=== PATIENT | female | born 2000 | race Caucasian/White ===

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

== ENCOUNTER 2019-06-18 17:38 | Emergency (ER) | payer MEDICAID, OTHER ==
--- NOTE | 2019-06-18 18:39 | XRay Report ---
CHEST 2 VIEWS 1807 INDICATION / CLINICAL INFORMATION: SOB, asthma, chest pain for one week COMPARISON: None available. FINDINGS: SUPPORT DEVICES: None. HEART / MEDIASTINUM: No significant abnormality. LUNGS / PLEURA: No significant pulmonary or pleural abnormality. No pneumothorax. ADDITIONAL FINDINGS: No significant additional findings. IMPRESSION: No significant acute abnormality Signer Name: Shaq Euceda MD Signed: 06/18/2019 6:35 PM Workstation Name: [id number]
--- NOTE | 2019-06-18 19:19 | Emergency Department Report ---
- General Chief Complaint: Adult Asthma Stated Complaint: ASTHMA Time Seen by Provider: 06/18/19 18:05 Source: patient Mode of arrival: Ambulatory Limitations: No Limitations - History of Present Illness Initial Comments: Patient is a 19-year-old female presents emergency room with complaints of shortness of breath and chest tightness that began 5 days ago. She states that she had childhood asthma and believes that it is recurring again. She states that she has not had issues since childhood. She denies any nausea, vomiting, diarrhea, fever, sore throat, ear pain, rhinorrhea, any other symptoms. She denies any recent travel, sick contacts, recent surgery, hormone use. She denies any other past medical history. She states she has an allergy to Tylenol and naproxen. She states her last menstrual cycle was June 06, 2019 - Related Data Previous Rx's Medication Instructions Recorded Last Taken Type HYDROcodone/APAP 5-325 [[place] 1 each PO Q8H PRN #12 tablet 05/13/16 Unknown Rx 5/325] Cephalexin [Keflex] 500 mg PO BID #14 capsule 08/13/16 Unknown Rx Ibuprofen [Motrin 600 MG tab] 600 mg PO Q8H PRN #21 tablet 08/13/16 Unknown Rx diphenhydrAMINE [Benadryl CAP] 25 mg PO QHS #20 capsule 08/13/16 Unknown Rx Amoxicillin 500 mg PO BID #20 capsule 01/29/17 Unknown Rx Nystas/Diphen/Xyl Visc/Mylanta 15 ml MM Q8H 10 Days udc 01/29/17 Unknown Rx [Magic Mouthwash] Albuterol Sulfate [Proventil Hfa] 6.7 gm IH TID PRN #1 hfa.aer.ad 06/18/19 Unknown Rx Cetirizine HCl [Zyrtec 10mg tab] 10 mg PO DAILY #30 tablet 06/18/19 Unknown Rx Fluticasone [Flonase] 1 spray NS QDAY #1 bottle 06/18/19 Unknown Rx Allergies Allergy/AdvReac Type Severity Reaction Status Date / Time acetaminophen Allergy Dizziness Verified 01/29/17 13:06 naproxen [From Naprosyn] Allergy Vomiting Verified 01/29/17 13:06 ED Review of Systems ROS: Stated complaint: ASTHMA Other details as noted in HPI Comment: All other systems reviewed and negative ED Past Medical Hx - Past Medical History Hx Asthma: Yes Additional medical history: One kidney(born with only one) - Surgical History Past Surgical History?: No - Social History Smoking Status: Never Smoker Substance Use Type: None - Medications Home Medications: Home Medications Medication Instructions Recorded Confirmed Last Taken Type HYDROcodone/APAP 5-325 [[place] 1 each PO Q8H PRN #12 tablet 05/13/16 Unknown Rx 5/325] Cephalexin [Keflex] 500 mg PO BID #14 capsule 08/13/16 Unknown Rx Ibuprofen [Motrin 600 MG tab] 600 mg PO Q8H PRN #21 tablet 08/13/16 Unknown Rx diphenhydrAMINE [Benadryl CAP] 25 mg PO QHS #20 capsule 08/13/16 Unknown Rx Amoxicillin 500 mg PO BID #20 capsule 01/29/17 Unknown Rx Nystas/Diphen/Xyl Visc/Mylanta 15 ml MM Q8H 10 Days udc 01/29/17 Unknown Rx [Magic Mouthwash] Albuterol Sulfate [Proventil Hfa] 6.7 gm IH TID PRN #1 hfa.aer.ad 06/18/19 Unknown Rx Cetirizine HCl [Zyrtec 10mg tab] 10 mg PO DAILY #30 tablet 06/18/19 Unknown Rx Fluticasone [Flonase] 1 spray NS QDAY #1 bottle 06/18/19 Unknown Rx ED Physical Exam - General Limitations: No Limitations General appearance: alert, in no apparent distress - Head Head exam: Present: atraumatic, normocephalic - Eye Eye exam: Present: normal appearance - ENT ENT exam: Present: normal orophraynx, mucous membranes moist, TM's normal bilaterally, normal external ear exam, other (pale turbinates) - Respiratory Respiratory exam: Present: normal lung sounds bilaterally. Absent: respiratory distress, wheezes, rales, rhonchi, stridor, chest wall tenderness, accessory muscle use, decreased breath sounds, prolonged expiratory - Cardiovascular Cardiovascular Exam: Present: regular rate, normal rhythm, normal heart sounds. Absent: systolic murmur, diastolic murmur, rubs, gallop - Extremities Exam Extremities exam: Absent: pedal edema - Neurological Exam Neurological exam: Present: alert, oriented X3 - Psychiatric Psychiatric exam: Present: normal affect, normal mood - Skin Skin exam: Present: warm, dry, intact ED Course Vital Signs 06/18/19 06/18/19 17:42 19:37 Temperature 99.0 F 98.1 F Pulse Rate 81 82 Respiratory 18 Rate Blood Pressure 131/79 Blood Pressure 123/74 [Left] O2 Sat by Pulse 98 97 Oximetry ED Medical Decision Making - Radiology Data Radiology results: report reviewed CHEST 2 VIEWS 180 INDICATION / CLINICAL INFORMATION: SOB, asthma, chest pain for one week COMPARISON: None available. FINDINGS: SUPPORT DEVICES: None. HEART / MEDIASTINUM: No significant abnormality. LUNGS / PLEURA: No significant pulmonary or pleural abnormality. No pneumothorax. ADDITIONAL FINDINGS: No significant additional findings. IMPRESSION: No significant acute abnormality Signer Name: Shaq Euceda MD Signed: 06/18/2019 6:35 PM Workstation Name: [id number] Transcribed By: GJ Dictated By: Shaq Euceda MD Electronically Authenticated By: Shaq Euceda MD Signed Date/Time: 06/18/191834 DD/ 33 TD/TT: - Medical Decision Making Patient is a 19-year-old female presents emergency room with complaints of shortness of breath and chest tightness that began 5 days ago. She states that she had childhood asthma and believes that it is recurring again. She states that she has not had issues since childhood. She denies any nausea, vomiting, diarrhea, fever, sore throat, ear pain, rhinorrhea, any other symptoms. She denies any recent travel, sick contacts, recent surgery, hormone use. She denies any other past medical history. She states she has an allergy to Tylenol and naproxen. She states her last menstrual cycle was June 06, 2019. Vitals are normal. On exam breath sounds are clear bilaterally, no wheezing, no rales, no rhonchi, no respiratory distress, no accessory muscle use, pale turbinates, no pedal edema. PERC criteria negative for PE. CXR: No significant acute abnormality. No signs of acute asthma exacerbation on exam. Patient given allergy medication and albuterol inhaler to use as needed. Patient does not have any known covert risk factors, no travel, no sick contacts, no fever, no cough. advised pt Please use medication as prescribed. Follow-up with a primary care doctor. Return to the emergency room immediately for any new or worsening symptoms. Critical care attestation.: If time is entered above; I have spent that time in minutes in the direct care of this critically ill patient, excluding procedure time. ED Disposition Clinical Impression: SOB (shortness of breath), Chest tightness Allergies Qualifiers: Encounter type: initial encounter Qualified Code(s): T78.40XA - Allergy, unspecified, initial encounter Disposition: TO HOME OR SELFCARE Is pt being admited?: No Does the pt Need Aspirin: No Condition: Stable Instructions: Allergies (ED), Dyspnea (ED) Additional Instructions: Please use medication as prescribed. Follow-up with a primary care doctor. Return to the emergency room immediately for any new or worsening symptoms. Prescriptions: Fluticasone [Flonase] 1 spray NS QDAY #1 bottle Albuterol Sulfate [Proventil Hfa] 6.7 gm IH TID PRN #1 hfa.aer.ad PRN Reason: Shortness Of Breath Cetirizine HCl [Zyrtec 10mg tab] 10 mg PO DAILY #30 tablet Referrals: ALEX AHMADI MD [Staff Physician] - 3-5 Days [facility] [Provider Group] - 3-5 Days Time of Disposition: 19:17 Print Language: KUWAITI
[2019-06-18 20:12] VITALS: BP 123/74
== END 2019-06-18 19:38 | disposition home or self-care (01) ==
LOC: ED 17:38
DX: T78.40XA Allergy, unspecified, initial encounter (principal); R07.89 Other chest pain; R06.02 Shortness of breath; J45.909 Unspecified asthma, uncomplicated; Z79.899 Other long term (current) drug therapy; X58.XXXA Exposure to other specified factors, initial encounter
CPT/HCPCS: 71046

== ENCOUNTER 2021-04-19 18:06 | Emergency (ER) | payer OTHER ==
[2021-04-19 18:23] VITALS: BP 109/61
[2021-04-19] MEDS ORDERED: SODIUM CHLORIDE 0.9% 1000 ML 1,000 ML IV ONE (18:36)
--- NOTE | 2021-04-19 19:28 | Ultrasound Report ---
ULTRASOUND OBSTETRIC COMPLETE INDICATION / CLINICAL INFORMATION: pain. Clinical Gestational Age (GA) in weeks.days: 13.3 TECHNIQUE: Transabdominal. COMPARISON: None available. FINDINGS: NUMBER: Single PRESENTATION: cephalic PLACENTA: maternal left and free of the os. MATERNAL ADNEXA: No significant abnormality. AMNIOTIC FLUID VOLUME: normal AMNIOTIC FLUID INDEX (MIKE) in cm (if measured): 20 ANATOMY: Too early for anatomical survey MEASUREMENTS: - Biparietal Diameter = 2.07 cm = 13.2 weeks.days - Head Circumference = 7.88 cm = 13.3 weeks.days - Abdominal Circumference = 7.07 cm = 13.5 weeks.days - Femur Length = 1.09 cm = 13.1 weeks.days - Heart Rate (beats per minute): 56 ADDITIONAL FINDINGS: None. AVERAGE ULTRASOUND AGE (AUA) in weeks.days = 13.3 IMPRESSION: 1. Single intrauterine with AUA of 13.3 weeks.days 2. No significant sonographic abnormality. Signer Name: Franki Pitts MD Signed: 04/19/2021 7:23 PM Workstation Name: [id number]
--- NOTE | 2021-04-19 19:31 | XRay Report ---
CHEST 1 VIEW 04/19/2021 6:21 PM INDICATION / CLINICAL INFORMATION: Dyspnea. COMPARISON: 06/18/2019 FINDINGS: SUPPORT DEVICES: None. HEART / MEDIASTINUM: No significant abnormality. LUNGS / PLEURA: No significant pulmonary or pleural abnormality. No pneumothorax. ADDITIONAL FINDINGS: No significant additional findings. IMPRESSION: 1. No acute findings. Signer Name: Franki Pitts MD Signed: 04/19/2021 7:27 PM Workstation Name: [id number]
[2021-04-19 19:44] LABS: Basophils % (Auto) 0.5 % (0.0-1.8); Eosinophils # (Auto) 0.3 K/mm3 (0.0-0.4); Eosinophils % (Auto) 3.2 % (0.0-4.3); Hematocrit 37.9 % (30.3-42.9); Lymphocytes % (Auto) 9.7 % (13.4-35.0); Mean Corpuscular HGB Conc 34 % (30-34); Mean Corpuscular Volume 82 fl (79-97); Monocytes # (Auto) 0.9 K/mm3 (0.0-0.8); Monocytes % (Auto) 8.8 % (0.0-7.3); Platelet Count 202 K/mm3 (140-440); Red Blood Count 4.64 M/mm3 (3.65-5.03); Red Cell Distribution Width 15.5 % (13.2-15.2)
[2021-04-19 19:56] LABS: Bilirubin,Urine NEG (Negative); Blood,Urine NEG (Negative); Color,Urine Yellow (Yellow); Protein,Urine <15 mg/dL mg/dL (Negative); Urobilinogen,Urine < 2.0 mg/dL (<2.0); WBC,Urine < 1.0 /HPF (0.0-6.0)
[2021-04-19 20:02] LABS: Blood Urea Nitrogen 7 mg/dL (7-17)
[2021-04-19 20:03] LABS: Alanine Aminotransferase 9 units/L (7-56); BUN/Creatinine Ratio 18; Calcium 8.9 mg/dL (8.4-10.2)
[2021-04-19 20:04] LABS: Hemolysis Index 9
[2021-04-19 20:06] LABS: RBC,Urine < 1.0 /HPF (0.0-6.0)
--- NOTE | 2021-04-19 20:22 | Emergency Department Report ---
ED Female HPI - General Chief complaint: Abdominal Pain Stated complaint: 13WKS /PELVIC PAIN Time Seen by Provider: 04/19/21 18:32 Source: patient Mode of arrival: Ambulatory Limitations: No Limitations - History of Present Illness Initial comments: pt 13 weeks preg complain of abd and chest pain MD Complaint: other (abdominal pain an chest pain ) -: Gradual Severity: mild Severity scale (0 -10): 1 Quality: dull Consistency: intermittent Improves with: none Worsens with: none - Related Data Sexually active: No Previous Rx's Medication Instructions Recorded Last Taken Type HYDROcodone/APAP 5-325 [[place] 1 each PO Q8H PRN #12 tablet 05/13/16 Unknown Rx 5/325] Ibuprofen [Motrin 600 MG tab] 600 mg PO Q8H PRN #21 tablet 08/13/16 Unknown Rx cephALEXin [Keflex] 500 mg PO BID #14 capsule 08/13/16 Unknown Rx diphenhydrAMINE [Benadryl CAP] 25 mg PO QHS #20 capsule 08/13/16 Unknown Rx Amoxicillin 500 mg PO BID #20 capsule 01/29/17 Unknown Rx Nystas/Diphen/Xyl Visc/Mylanta 15 ml MM Q8H 10 Days udc 01/29/17 Unknown Rx [Magic Mouthwash] Albuterol Sulfate [Proventil Hfa] 6.7 gm IH TID PRN #1 hfa.aer.ad 06/18/19 Unknown Rx Cetirizine HCl [Zyrtec 10mg tab] 10 mg PO DAILY #30 tablet 06/18/19 Unknown Rx Fluticasone [Flonase] 1 spray NS QDAY #1 bottle 06/18/19 Unknown Rx Allergies Allergy/AdvReac Type Severity Reaction Status Date / Time acetaminophen Allergy Dizziness Verified 01/29/17 13:06 naproxen [From Naprosyn] Allergy Vomiting Verified 01/29/17 13:06 ED Review of Systems ROS: Stated complaint: 13WKS /PELVIC PAIN Other details as noted in HPI Constitutional: denies: chills, fever Eyes: denies: eye pain, eye discharge, vision change ENT: denies: ear pain, throat pain Respiratory: denies: cough, shortness of breath, wheezing Cardiovascular: denies: chest pain, palpitations Endocrine: no symptoms reported Gastrointestinal: denies: abdominal pain, nausea, diarrhea Genitourinary: denies: urgency, dysuria, discharge Musculoskeletal: denies: back pain, joint swelling, arthralgia Skin: denies: rash, lesions Neurological: denies: headache, weakness, paresthesias Psychiatric: denies: anxiety, depression Hematological/Lymphatic: denies: easy bleeding, easy bruising ED Past Medical Hx - Past Medical History Previous Medical History?: Yes Hx Asthma: Yes Additional medical history: One kidney(born with only one) - Surgical History Past Surgical History?: No - Social History Smoking Status: Never Smoker Substance Use Type: None - Medications Home Medications: Home Medications Medication Instructions Recorded Confirmed Last Taken Type HYDROcodone/APAP 5-325 [[place] 1 each PO Q8H PRN #12 tablet 05/13/16 Unknown Rx 5/325] Ibuprofen [Motrin 600 MG tab] 600 mg PO Q8H PRN #21 tablet 08/13/16 Unknown Rx cephALEXin [Keflex] 500 mg PO BID #14 capsule 08/13/16 Unknown Rx diphenhydrAMINE [Benadryl CAP] 25 mg PO QHS #20 capsule 08/13/16 Unknown Rx Amoxicillin 500 mg PO BID #20 capsule 01/29/17 Unknown Rx Nystas/Diphen/Xyl Visc/Mylanta 15 ml MM Q8H 10 Days udc 01/29/17 Unknown Rx [Magic Mouthwash] Albuterol Sulfate [Proventil Hfa] 6.7 gm IH TID PRN #1 hfa.aer.ad 06/18/19 Unknown Rx Cetirizine HCl [Zyrtec 10mg tab] 10 mg PO DAILY #30 tablet 06/18/19 Unknown Rx Fluticasone [Flonase] 1 spray NS QDAY #1 bottle 06/18/19 Unknown Rx ED Physical Exam - General Limitations: No Limitations General appearance: alert, in no apparent distress - Head Head exam: Present: atraumatic, normocephalic - Eye Eye exam: Present: normal appearance - ENT ENT exam: Present: mucous membranes moist - Neck Neck exam: Present: normal inspection - Respiratory Respiratory exam: Present: normal lung sounds bilaterally. Absent: respiratory distress - Cardiovascular Cardiovascular Exam: Present: regular rate, normal rhythm. Absent: systolic murmur, diastolic murmur, rubs, gallop - GI/Abdominal GI/Abdominal exam: Present: soft, normal bowel sounds - Extremities Exam Extremities exam: Present: normal inspection - Back Exam Back exam: Present: normal inspection - Neurological Exam Neurological exam: Present: alert, oriented X3 - Psychiatric Psychiatric exam: Present: normal affect, normal mood - Skin Skin exam: Present: warm, dry, intact, normal color. Absent: rash ED Course Vital Signs 04/19/21 18:21 Temperature 98.6 F Pulse Rate 87 Respiratory 16 Rate Blood Pressure 109/61 [Left] O2 Sat by Pulse 99 Oximetry - Reevaluation(s) Reevaluation #1: 04/19/21 20:22 vss no distress, no osb , x ray negative enzymes negative US showed 13 3 no abnormality ED Medical Decision Making - Lab Data Result diagrams: 04/19/21 19:16 04/19/21 19:16 Critical care attestation.: If time is entered above; I have spent that time in minutes in the direct care of this critically ill patient, excluding procedure time. ED Disposition Clinical Impression: Abdominal pain during Disposition: 01 HOME / SELF CARE / HOMELESS Is pt being admited?: No Does the pt Need Aspirin: No Condition: Stable Instructions: Abdominal Pain (ED), Round Ligament Pain
--- NOTE | 2021-04-20 14:41 | Electrocardiograph Report ---
[facility] Test Date: 2021-04-19 Test Time: 18:26:39 Pat Name: JARRETT OAKLEY Department: Room: Gender: F Imaging Administrator: ALEXANDREA : 2000 Requested By: REJI MUNIZ Order Number: [id number] Reading MD: Sameer Genao Measurements Intervals [place] Rate: 78 P: 3 PA: 143 QRS: 5 QRSD: 65 T: 25 QT: 369 QTc: 420 Interpretive Statements Sinus rhythm Low voltage, precordial leads No previous ECG available for comparison Electronically Signed On 04-20-2021 14:41:11 EST by Sameer Genao
== END 2021-04-19 20:36 | disposition home or self-care (01) ==
LOC: ED 18:06
DX: O26.891 Other specified pregnancy related conditions, first trimester (principal); Z3A.13 13 weeks gestation of pregnancy; R10.9 Unspecified abdominal pain; J45.909 Unspecified asthma, uncomplicated; Z88.1 Allergy status to other antibiotic agents; Z91.09 Other allergy status, other than to drugs and biological substances; Z79.899 Other long term (current) drug therapy
CPT/HCPCS: 36415; 71045; 76801; 80053; 81001; 84484; 84703; 85025; 93005; 93010; 96360; 99284; J7030; 76810; Q0162

== ENCOUNTER 2021-10-10 06:57 | Inpatient (IN) | payer OTHER, MEDICAID ==
[2021-10-10] MEDS ORDERED: fentaNYL 100 MCG/2 ML INJ IV PRN (08:07)
[2021-10-10] MEDS ORDERED: ePHEDrine SULFATE 50 MG/1 ML INJ IV PRN (08:07)
[2021-10-10] MEDS ORDERED: TERBUTALINE 1 MG/1 ML INJ SUB-Q PRN (08:07)
[2021-10-10] MEDS ORDERED: METHYLERGONOVINE MALEATE 0.2 MG/ML VIAL IM PRN (08:07)
[2021-10-10] MEDS ORDERED: CARBOPROST TROMETHAMINE 250 MCG/1 ML INJ IM PRN (08:07)
--- NOTE | 2021-10-10 08:20 | History and Physical Report ---
History of Present Illness Date of examination: 10/10/21 Date of admission: 10/10/2021 Chief complaint: Leaking of fluid History of present illness: 21 y/o at 38-2/7 weeks presents to OBT reporting LOF. No VB. There are CTX that started after LOF. Good FM. ROM Plus testing is unavailable. SVE is 1 cm dilated. She is admitted to L&D for IOL. Past History Past Medical History: no pertinent history Past Surgical History: no surgical history Family/Genetic History: none Social history: no significant social history - Obstetrical History Expected Date of Delivery: 10/22/21 Actual Gestation: 38 Week(s) 2 Day(s) : 1 Para: 0 Medications and Allergies Allergies Allergy/AdvReac Type Severity Reaction Status Date / Time acetaminophen Allergy Dizziness Verified 01/29/17 13:06 naproxen [From Naprosyn] Allergy Vomiting Verified 01/29/17 13:06 Home Medications Medication Instructions Recorded Confirmed Last Taken Type HYDROcodone/APAP 5-325 [[place] 1 each PO Q8H PRN #12 tablet 05/13/16 Unknown Rx 5/325] Ibuprofen [Motrin 600 MG tab] 600 mg PO Q8H PRN #21 tablet 08/13/16 Unknown Rx cephALEXin [Keflex] 500 mg PO BID #14 capsule 08/13/16 Unknown Rx diphenhydrAMINE [Benadryl CAP] 25 mg PO QHS #20 capsule 08/13/16 Unknown Rx Amoxicillin 500 mg PO BID #20 capsule 01/29/17 Unknown Rx Nystas/Diphen/Xyl Visc/Mylanta 15 ml MM Q8H 10 Days udc 01/29/17 Unknown Rx [Magic Mouthwash] Albuterol Sulfate [Proventil Hfa] 6.7 gm IH TID PRN #1 hfa.aer.ad 06/18/19 Unknown Rx Cetirizine HCl [Zyrtec 10mg tab] 10 mg PO DAILY #30 tablet 06/18/19 Unknown Rx Fluticasone [Flonase] 1 spray NS QDAY #1 bottle 06/18/19 Unknown Rx Active Meds: Active Medications Butorphanol Tartrate (Butorphanol 2 Mg/1 Ml Inj) 2 mg IV Q2H PRN PRN Reason: Pain, Moderate(4-6) LABOR PAIN Carboprost Tromethamine (Carboprost Tromethamine 250 Mcg/1 Ml Inj) 250 mcg IM ONCE PRN PRN Reason: Uterine Bleeding Ephedrine Sulfate (Ephedrine Sulfate 50 Mg/1 Ml Inj) 10 mg IV Q2M PRN PRN Reason: Hypotension Fentanyl (Fentanyl 100 Mcg/2 Ml Inj) 100 mcg IV Q2H PRN PRN Reason: Pain,Severe (7-10) LABOR PAIN Lactated Ringer's (Lactated Ringers) 1,000 mls @ 125 mls/hr IV DIRECT HERBERT Oxytocin/Sodium Chloride (Pitocin/Ns 30 Unit/500ml) 30 units in 500 mls @ 40 mls/hr IV TITR HERBERT; Protocol Methylergonovine Maleate (Methylergonovine Maleate 0.2 Mg/Ml Vial) 0.2 mg IM ONCE PRN PRN Reason: Uterine Bleeding Misoprostol (Misoprostol 25 Mcg Tab) 25 mcg PO Q4H HERBERT Stop: 10/10/21 21:01 Terbutaline Sulfate (Terbutaline 1 Mg/1 Ml Inj) 0.25 mg SUB-Q ONCE PRN PRN Reason: Hyperstimulation/Hypertonicity Review of Systems All systems: negative - Vital Signs Vital signs: Vital Signs Pulse BP Pulse Ox 93 H 120/59 98 10/10/21 07:26 10/10/21 07:26 10/10/21 07:26 Temp Pulse Resp BP Pulse Ox 90 120/59 98 10/10/21 08:14 10/10/21 07:26 10/10/21 08:14 - Physical Exam Breasts: Positive: normal Cardiovascular: Regular rate Lungs: Positive: Normal air movement Abdomen: Positive: normal appearance Genitourinary (Female): Positive: normal external genitalia, normal perenium Vulva: both: normal Vagina: Positive: normal moisture Uterus: Positive: enlarged Adnexa: both: normal Anus/Rectum: Positive: normal perianal skin Extremities: Positive: normal Deep Tendon Reflex Grade: Normal +2 - Obstetrical FHR: category 1 Uterine Contraction Monitor Mode: Palpation Cervical Dilatation: 1 Cervical Effacement Percentage: 50 station: -3 Uterine Contraction Frequency (min): 3 Uterine Contraction Pattern: Irregular Results All other labs normal. Ultrasound: report reviewed Assessment and Plan - Patient Problems (1) 38 weeks gestation of Current Visit: Yes Status: Acute Plan to address problem: care is UTD at [facility] [employer]. She is GBS (-). AM shift to obtain records. (2) Full-term PROM with onset of labor within 24 hours of rupture Current Visit: Yes Status: Acute Plan to address problem: Term PROM is highly suspected. ROM Plus testing is unavailable. US is ordered to evaluate MIKE. Out of an abundance of caution, this patient is admitted to L&D for IOL secondary to Term PROM. (3) Encounter for induction of labor Current Visit: Yes Status: Acute Plan to address problem: Ripen cervix with oral Cytotec.
[2021-10-10] MEDS ORDERED: OXYTOCIN DRIP 30 UNITS/500 ML BAG IV SCH ×3 (09:00→12:00)
[2021-10-10] MEDS ORDERED: miSOPROStol 25 MCG TAB PO SCH (09:00)
[2021-10-10] MEDS ORDERED: BUTORPHANOL 2 MG/1 ML INJ IV PRN (09:00)
[2021-10-10] MEDS ORDERED: LACTATED RINGERS 1,000 ML IV SCH ×2 (09:00→22:30)
--- NOTE | 2021-10-10 09:24 | Ultrasound Report ---
ULTRASOUND OBSTETRIC INDICATION: Leaking of fluid. Clinical Gestational Age (GA): 38.2 weeks TECHNIQUE: Transabdominal. COMPARISON: OB ultrasound from 04/19/2021. FINDINGS: There is a single intrauterine . Biparietal Diameter = 9.2 cm = 37 weeks, 2 day(s). Head Circumference = 33.6 cm = 38 weeks, 4 day(s). Abdominal Circumference = 32.9 cm = 36 weeks, 5 day(s). Femur Length = 6.8 cm = 35 weeks, 0 day(s). Average Ultrasound Age (AUA) = 36 weeks, 6 day(s). Heart Rate: 133 beats per minute. Estimated Weight in grams (if calculated): 2974 Estimated Weight Growth Percentile (if calculated): 22 Position: breech. Cervix: closed. Length in cm (if measured): Not measured Placenta: anterior and free of the os. Amniotic Fluid Volume: decreased Amniotic Fluid Index (MIKE) in cm (if calculated): 4.4. Maternal Adnexa: No significant abnormality. IMPRESSION: 1. Single, living intrauterine with estimated sonographic age of 36 weeks, 6 day(s). 2. Decreased MIKE of 4.4 cm, consistent with the provided history of leakage of fluid. 3. No other significant abnormality. Signer Name: Juan Dotson MD Signed: 10/10/2021 9:19 AM Workstation Name: [id number]
[2021-10-10] MEDS: LACTATED RINGERS 1,000 ML IV SCH ×2 (10:00→11:00)
--- NOTE | 2021-10-10 10:57 | Event Note ---
Date: 10/10/21 pt heard screaming and therefore I went to the room. Pelvic exam done and same noted to be non-vertex/5/0 station. Official report of u/s breech. FHR remains category I with irreg contractions. Discussed alternate route of delivery for breech presentation in active labor, discussed risks, benefits and alternatives and consents signed. All questions encouraged and answered. NICU, Anesthesia and charge nurse notified.
[2021-10-10] MEDS ORDERED: METOCLOPRAMIDE 10 MG/2 ML INJ IV ONE (10:58)
[2021-10-10] MEDS ORDERED: BICITRA ORAL LIQD 30ML PO ONE (10:58)
[2021-10-10] MEDS ORDERED: FAMOTIDINE 20 MG/2 ML INJ IV ONE (10:58)
[2021-10-10 10:59] LABS: Hematocrit 36.6 % (30.3-42.9); Hemoglobin 12.3 gm/dl (10.1-14.3); Mean Corpuscular HGB Conc 34 % (30-34); Mean Corpuscular Volume 76 fl (79-97); Platelet Count 275 K/mm3 (140-440); Red Blood Count 4.81 M/mm3 (3.65-5.03); Red Cell Distribution Width 18.7 % (13.2-15.2)
[2021-10-10] MEDS ORDERED: ceFAZolin/Water 2 GM/20 ML 2 GM/20 ML SYRINGE IV NR (11:00)
--- NOTE | 2021-10-10 11:00 | Anesthesia Day of Surgery ---
Anesthesia Day of Surgery - Day of Surgery Patient Examined: Yes Patient H&P Reviewed: Yes Patient is NPO: Yes
--- NOTE | 2021-10-10 11:02 | Anesthesia Consultation ---
Anesthesia Consult and Med Hx Date of service: 10/10/21 - Airway Anesthetic Teeth Evaluation: Poor ROM Head & Neck: Adequate Mental/Hyoid Distance: Adequate Mallampati Class: Class II Intubation Access Assessment: Probably Good - Pulmonary Exam CTA: Yes - Cardiac Exam Cardiac Exam: RRR - Pre-Operative Health Status ASA Pre-Surgery Classification: ASA2 Proposed Anesthetic Plan: Spinal - Pulmonary Hx Smoking: No Hx Asthma: No - Cardiovascular System Hx Hypertension: No - Central Nervous System Hx Seizures: No Hx Psychiatric Problems: No - Endocrine Hx Renal Disease: Yes (born w 1 kidney) Hx Hypothyroidism: No Hx Hyperthyroidism: No - Hematic Hx Anemia: No Hx Sickle Cell Disease: No - Other Systems Hx Alcohol Use: No Hx Substance Use: No Hx Obesity: No
[2021-10-10] MEDS ORDERED: NALOXONE 0.4 MG/1 ML INJ IV PRN (11:11)
[2021-10-10] MEDS ORDERED: ceFAZolin/STERILE WATER 2 GM/20 ML SYRINGE IV ONE (11:30)
[2021-10-10] MEDS ORDERED: BUPIVACAINE/PF (0.5%) 5 MG/1 ML 30 ML VIAL INFILTRATI ONE (11:37)
[2021-10-10] MEDS ORDERED: SODIUM CHLORIDE 0.9% 100 ML ONE (11:37)
[2021-10-10] MEDS ORDERED: dexAMETHasone 20 MG/5 ML VIAL ONE (11:37)
[2021-10-10] MEDS ORDERED: ONDANSETRON 4 MG/2 ML INJ ONE (11:37)
[2021-10-10] MEDS ORDERED: oxyCODONE /ACETAMINOPHEN 5-325MG TAB PO PRN (12:00)
[2021-10-10] MEDS ORDERED: PROMETHAZINE 25 MG RECT SUPP PR PRN (12:00)
[2021-10-10] MEDS ORDERED: IBUPROFEN 600 MG TAB PO PRN (12:00)
[2021-10-10] MEDS ORDERED: LANOLIN/ZINC/DIMETHICONE (LANSINOH) 7 GM TP PRN (12:00)
[2021-10-10] MEDS ORDERED: MORPHINE 4 MG/1 ML INJ IV PRN (12:00)
[2021-10-10] MEDS ORDERED: SIMETHICONE 80 MG CHEW TAB PO PRN (12:00)
[2021-10-10] MEDS ORDERED: ONDANSETRON 4 MG/2 ML INJ IV PRN (12:00)
[2021-10-10] MEDS ORDERED: WITCH HAZEL/ GLYCERIN PAD TP PRN (12:00)
[2021-10-10] MEDS ORDERED: KETOROLAC 30 MG/1 ML INJ ONE (12:28)
[2021-10-10] MEDS ORDERED: miSOPROStol 200 MCG TAB ONE (12:42)
[2021-10-10] MEDS ORDERED: miSOPROStol 200 MCG TAB PR NR (12:45)
--- NOTE | 2021-10-10 13:05 | Progress Note ---
Spinal Anesthesia Block - Spinal Anesthesia Block Start Time: 11:20 Stop Time: :25 Performed by:: BETSY PATEL Procedure: Patient IDed, H&P reviewed, all questions and concerns were answered, and consent was signed. Timeout was performed at bedside. Patient in sitting position. Sterile prep and drape was performed. [3] ml of 1% lidocaine skin wheal at L[3]- L [4]. Needle introducer advanced. 25 gauge spinal needle advanced. Clear, free flowing CSF. negative blood, negative paresthesia. Spinal dose given. All needles removed. Patient tolerated procedure.
--- NOTE | 2021-10-10 13:06 | Progress Note ---
Regional Anesthesia Block - Regional Anesthesia Block Start Time: 11:51 Stop Time: 11:53 Performed By:: BETSY PATEL Procedure: Patient consented for TAP block for post surgical pain management. Patient identified, monitors placed, and time out performed. TAP identified bilaterally via ultrasound. Skin prepped bilaterally with [chlorhexidine] and [22g stimuplex] needle advanced to the TAP. [Marcaine 0.22% 35ml] injected under ultrasound guidance on the [left] side. [Marcaine 0.22% 35ml] injected under ultrasound guidance on the [right] side. Negative aspiration every 5mL, No change in heart rate or rhythm. Patient tolerated the procedure well. No apparent complications seen.
--- NOTE | 2021-10-10 13:13 | Procedure Note ---
OB Delivery Note - Delivery Date of Delivery: 10/10/21 Surgeon: REBA GARCIA Estimated blood loss: other (537cc by QBL) - Section Preop diagnosis: breech Postop diagnosis: same (and bicornuate uterus) section procedure: primary low transverse Disposition: floor Complications: none Narrative: Date: 10/10/21 Surgeon: Reba Garcia MD Preop Dx: IUP at 38.2wks with breech presentation in active labor, SROM Postop Dx: same and bicornuate uterus with fetus in right horn; Incomplete breech Procedure : Primary Low Transverse section Anesthesia: Spinal Intake: 2000cc crystalloids Output: 300cc EBL: 537cc per QBL After the risks, benefits and alternatives of procedure discussed, patient signed consents and was taken to the operating room via stretcher and tearful with ctx. Pt was given spinal anesthesia. After same was adequate, patient was prepped and draped in the usual sterile fashion. De La Garza catheter in place and draining clear urine. Pt was given prophylactic antibiotic per protocol and time out was done Pfannenstiel skin incision was made and taken sharply to the fascia and the incision extended using electrocautery. Superior edge of the fascia was grasped with letty clamps and the rectus muscle using blunt dissection and also using electrocautery. Lower portion of the fascia also sharply. Rectus muscle in the midline and Peritoneal cavity entered bluntly and extended with good visualization of the bladder. Clifford retractor placed without difficulty. The bladder flap was created sharply using metzenbaum scissors. Lower uterine segment then entered transversely and amniotic sac entered using allys clamps. Uterine incision extended using bandage scissors. in incomplete breech with right foot extended, delivered breech in usual fashion without uncomplicated; bulb suctioned, cord clamped and baby handed to waiting pediatricians. Placenta then delivered manually and same noted to have an accessory lobe and complete. Uterine then accessed thoroughly and noted to have a heart shape and a left horn with a dimple. The uterine cavity cleared of all clots and debri. The uterus was exteriorized and closed in 2 layers using 0- monocryl suture in a running locked fashion and then an additional layer of imbrication suture. Surgicel powder placed. Excellent hemostasis noted. The gutters were cleared of clots and debri and anterior peritoneum closed using 3-0 vicryl suture in a running fashion and rectus muscle reapproximated using 0- vicryl suture in a running fashion. Rectus fascia closed with 0-vicryl suture in a continuous fashion and subcutaneous tissue copiously irrigated with normal saline, electrocautery used to achieve hemostasis to small bleeders with excellent hemostasis and subcutaneous tissue re-approximated using 3-0 vicryl suture in a running fashion. Excellent hemostasis remains. The skin was closed with 4-0 monocryl suture and steristrips placed with pressure dressing. Sponge, lap, instrument and needle counts x2 were normal. Bimanual exam done and only one cervix pa lpated. Patient tolerated the procedure well and was taken to recovery room stable. Pt told she will need further evaluate as an outpatient for renal structures with this uterine anomaly just discovered. Also pt given cytotec 800mcg per rectum x1 dose with great risk of hemorrhage from bicornuate uterus. Findings: Viable female , APGARS 8/9 and weight 3600g. Bicornuate uterus , tubes and ovaries. - A at 1 minute: 8 at 5 minutes: 9 Infant Gender: Female (clear amniotic fluid; wt 3600g)
[2021-10-10] MEDS ORDERED: HYDROmorphone 2 MG TAB PO PRN ×2 (14:00)
[2021-10-10] MEDS ORDERED: MAGNESIUM HYDROXIDE (MOM) ORAL LIQD UDC PO PRN (22:00)
[2021-10-10] MEDS ORDERED: SENNOSIDES 8.6 MG TAB PO PRN (22:00)
[2021-10-11] MEDS: IBUPROFEN 800 MG TAB PO PRN ×2 (04:44→16:21)
[2021-10-11] MEDS ORDERED: MEASLES, MUMPS & RUBELLA 12,500 UNIT/0.5 ML VACCINE SUB-Q ONE (06:00)
[2021-10-11] MEDS: PRENATAL VIT27-FE FUMARATE-FOLIC ACID VIT TAB PO SCH (10:45)
[2021-10-11] MEDS: FERROUS SULFATE 325 MG TAB PO SCH (10:45)
--- NOTE | 2021-10-11 11:18 | Post Anesthesia Evaluation ---
- Post Anesthesia Evaluation Patient Participated: Yes Airway Patent: Yes Stable Respiratory Function: Yes Nausea/Vomiting: No Temp > 96.8F: Yes Pain Manageable: Yes Adequeate Hydration: Yes Anesthesia Complications: No Block Receding Appropriately: Yes Patient on Ventilator: No
--- NOTE | 2021-10-11 11:31 | Progress Note ---
Assessment and Plan A: POD #1 Stable P: Follow Routine PostOp Orders Encourage increased ambulation Subjective - Subjective Date of service: 10/11/21 Patient reports: appetite normal, voiding normally, pain well controlled, flatus, ambulating normally [place]: doing well, bottle feeding (and ) Objective - Vital Signs Latest vital signs: Vital Signs Temp Pulse Resp BP Pulse Ox Pulse Ox 10/11/21 07:37 98.2 F 80 14 94/62 96 10/11/21 07:30 98 10/11/21 04:54 97.9 F 82 18 91/53 98 10/11/21 04:44 18 10/11/21 01:05 97.9 F 95 H 18 104/59 98 10/10/21 22:53 18 10/10/21 17:44 98 10/10/21 15:00 100 10/10/21 14:47 98.7 F 102 H 14 119/40 100 10/10/21 14:26 98 H 17 116/58 99 10/10/21 14:00 102 H 17 118/53 99 10/10/21 13:45 99 H 18 108/56 100 10/10/21 13:30 98.2 F 93 H 20 119/66 100 10/10/21 13:15 103 H 15 116/62 100 10/10/21 13:10 94 H 18 124/66 100 10/10/21 13:05 95 H 19 122/63 100 10/10/21 13:00 98.5 F 86 15 119/60 100 Intake and Output 10/10/21 10/11/21 10/11/21 22:59 06:59 14:59 Intake Total 600 Output Total 1400 400 Balance -800 -400 Intake: Oral 360 Intake, Free Water 240 Output: Urine 1400 400 Indwelling Catheter 1400 Void 400 Other: Total, Intake Amount 360 Total, Output Amount 1000 400 # Voids Void 2 - Exam Breasts: Present: normal Cardiovascular: Present: Regular rate Lungs: Present: Clear to auscultation, Normal air movement Abdomen: Present: normal appearance, soft, normal bowel sounds Uterus: Present: normal, firm, fundal height below umbilicus Extremities: Present: normal
[2021-10-11 23:58] LABS: Hematocrit 29.2 % (30.3-42.9); Hemoglobin 9.7 gm/dl (10.1-14.3); Mean Corpuscular HGB Conc 33 % (30-34); Mean Corpuscular Volume 77 fl (79-97); Platelet Count 271 K/mm3 (140-440); Red Blood Count 3.78 M/mm3 (3.65-5.03); Red Cell Distribution Width 18.6 % (13.2-15.2)
[2021-10-12 00:20] LABS: Basophils # (Auto) 0.1 K/mm3 (0.0-0.1); Basophils % (Auto) 0.4 % (0.0-1.8); Eosinophils # (Auto) 0.1 K/mm3 (0.0-0.4); Eosinophils % (Auto) 0.4 % (0.0-4.3); Lymphocytes # (Auto) 1.5 K/mm3 (1.2-5.4); Lymphocytes % (Auto) 9.8 % (13.4-35.0); Monocytes # (Auto) 1.4 K/mm3 (0.0-0.8); Monocytes % (Auto) 9.5 % (0.0-7.3)
[2021-10-12] MEDS: IBUPROFEN 800 MG TAB PO PRN ×3 (04:28→17:31)
[2021-10-12] MEDS: FERROUS SULFATE 325 MG TAB PO SCH (10:16)
[2021-10-12] MEDS: PRENATAL VIT27-FE FUMARATE-FOLIC ACID VIT TAB PO SCH (10:16)
[2021-10-12 11:42] LABS: Hemoglobin 9.2 gm/dl (10.1-14.3); Mean Corpuscular HGB Conc 34 % (30-34); Mean Corpuscular Volume 77 fl (79-97); Platelet Count 240 K/mm3 (140-440); Red Blood Count 3.52 M/mm3 (3.65-5.03); Red Cell Distribution Width 18.9 % (13.2-15.2)
[2021-10-12 14:46] LABS: Basophils % (Manual) 0 % (0.0-1.8); Platelet Estimate Consistent w Auto; Target Cells 1+; Tear Drop Cells Few; Total Cells Counted 100
[2021-10-12] MEDS: AMOXICILLIN/K CLAV 875/125MG TAB PO SCH (17:32)
--- NOTE | 2021-10-12 18:19 | Progress Note ---
Assessment and Plan A: POD #2 Anemia Currently stable P: Continue PP orders PO iron bid Anticipate sending home 24hr Subjective - Subjective Date of service: 10/12/21 Principal diagnosis: BREECH PRESENTATION POD2 Patient reports: appetite normal, voiding normally, pain well controlled, ambulating normally : doing well, bottle feeding Objective - Vital Signs Latest vital signs: Vital Signs Temp Pulse Resp BP BP Pulse Ox Pulse Ox 10/12/21 12:54 98 10/12/21 07:35 98.0 F 93 H 20 98/56 95 10/12/21 00:00 98.7 F 69 16 115/72 Intake and Output 10/12/21 10/12/21 10/12/21 07:59 15:59 23:59 Intake Total 480 Balance 480 Intake: Oral 480 Other: Total, Intake Amount 240 # Voids Void 1 1 - Exam Breasts: Present: normal Cardiovascular: Present: Regular rate Lungs: Present: Clear to auscultation Abdomen: Present: soft, tenderness Uterus: Present: firm, tenderness, fundal height below umbilicus Extremities: Present: normal Incision: Present: dry, intact, dressed (STERI STRIPS CLEAN AND DRY) - Labs Labs: Abnormal lab results 10/11/21 10/12/21 Range/Units 22:52 10:48 WBC 15.3 H 14.4 H (4.5-11.0) K/mm3 RBC 3.52 L (3.65-5.03) M/mm3 Hgb 9.7 L 9.2 L (10.1-14.3) gm/dl Hct 29.2 L D 27.0 L (30.3-42.9) % MCV 77 L 77 L (79-97) fl MCH 26 L 26 L (28-32) pg RDW 18.6 H 18.9 H (13.2-15.2) % Lymph % (Auto) 9.8 L (13.4-35.0) % [place] % (Auto) 9.5 H (0.0-7.3) % [place] # (Auto) 1.4 H (0.0-0.8) K/mm3 Seg Neutrophils % 79.9 H (40.0-70.0) % Seg Neuts % (Manual) 71.0 H (40.0-70.0) % Lymphocytes % (Manual) 13.0 L (13.4-35.0) % Monocytes % (Manual) 11.0 H (0.0-7.3) % Seg Neutrophils # 12.1 H (1.8-7.7) K/mm3 Seg Neutrophils # Man 10.2 H (1.8-7.7) K/mm3 Monocytes # (Manual) 1.6 H (0.0-0.8) K/mm3
[2021-10-13] MEDS: FERROUS SULFATE 325 MG TAB PO SCH ×2 (00:59→09:54)
[2021-10-13] MEDS: AMOXICILLIN/K CLAV 875/125MG TAB PO SCH (06:02)
--- NOTE | 2021-10-13 08:33 | Progress Note ---
Assessment and Plan POD#3 C/S due to breech in labor and doing well; Endomyometritis resolving well. 1. Routine care and discharge pt home later today after repeat cbc results seen. Will complete augmentin for 5day course as outpatient Subjective Date of service: 10/13/21 Principal diagnosis: POD#3 C/section Interval history: pt has no complaints. Pt desires to go home. Pt is bottle feeding and pain controlled with meds. Pt has been taking the augmentin antibiotic and feels better. denies dysuria Objective - Constitutional Vitals: Vital Signs - 12hr 10/13/21 01:00 Temperature 98.4 F Pulse Rate 108 H Respiratory 20 Rate Blood Pressure 93/51 O2 Sat by Pulse 98 Oximetry General appearance: Present: no acute distress - Neck Neck: normal ROM - Respiratory Respiratory effort: normal - Breasts Breasts: deferred - Cardiovascular Rhythm: regular Extremities: No edema - Gastrointestinal General gastrointestinal: Present: soft, non-tender - Genitourinary Female genitourinary: other (Incision C/D/I with steristrips; fundus less tender than when I evaluated yesterday) - Integumentary Integumentary: warm, dry - Neurologic Neurologic: moves all extremities - Psychiatric Psychiatric: cooperative - Labs CBC & Chem 7: 10/12/21 10:48 Labs: Abnormal lab results 10/12/21 Range/Units 10:48 WBC 14.4 H (4.5-11.0) K/mm3 RBC 3.52 L (3.65-5.03) M/mm3 Hgb 9.2 L (10.1-14.3) gm/dl Hct 27.0 L (30.3-42.9) % MCV 77 L (79-97) fl MCH 26 L (28-32) pg RDW 18.9 H (13.2-15.2) % Seg Neuts % (Manual) 71.0 H (40.0-70.0) % Lymphocytes % (Manual) 13.0 L (13.4-35.0) % Monocytes % (Manual) 11.0 H (0.0-7.3) % Seg Neutrophils # Man 10.2 H (1.8-7.7) K/mm3 Monocytes # (Manual) 1.6 H (0.0-0.8) K/mm3 Medications & Allergies - Medications Allergies/Adverse Reactions: Allergies acetaminophen Allergy (Verified 01/29/17 13:06) Dizziness naproxen [From Naprosyn] Allergy (Verified 01/29/17 13:06) Vomiting Home Medications: Home Medications Medication Instructions Recorded Confirmed Last Taken Type HYDROcodone/APAP 5-325 [[place] 1 each PO Q8H PRN #12 tablet 05/13/16 Unknown Rx 5/325] Ibuprofen [Motrin 600 MG tab] 600 mg PO Q8H PRN #21 tablet 08/13/16 Unknown Rx cephALEXin [Keflex] 500 mg PO BID #14 capsule 08/13/16 Unknown Rx diphenhydrAMINE [Benadryl CAP] 25 mg PO QHS #20 capsule 08/13/16 Unknown Rx Amoxicillin 500 mg PO BID #20 capsule 01/29/17 Unknown Rx Nystas/Diphen/Xyl Visc/Mylanta 15 ml MM Q8H 10 Days udc 01/29/17 Unknown Rx [Magic Mouthwash] Albuterol Sulfate [Proventil Hfa] 6.7 gm IH TID PRN #1 hfa.aer.ad 06/18/19 Unknown Rx Cetirizine HCl [Zyrtec 10mg tab] 10 mg PO DAILY #30 tablet 06/18/19 Unknown Rx Fluticasone [Flonase] 1 spray NS QDAY #1 bottle 06/18/19 Unknown Rx HYDROmorphone [Dilaudid] 2 mg PO Q4HR PRN 21 Days #30 tablet 10/10/21 Unknown Rx Ibuprofen [Motrin] 800 mg PO Q8HR PRN 21 Days #40 10/10/21 Unknown Rx tablet Active Medications: Generic Name Dose Route Start Last Admin Trade Name Freq PRN Reason Stop Dose Admin Amoxicillin/Clavulanate Potassium 1 each 10/12/21 13:40 10/13/21 06:02 Amoxicillin/K Clav 875/125mg Tab PO 1 each Q12HR HERBERT Administration Protocol Butorphanol Tartrate 2 mg 10/10/21 09:00 Butorphanol 2 Mg/1 Ml Inj IV Q2H PRN Pain, Moderate(4-6) LABOR PAIN Carboprost Tromethamine 250 mcg 10/10/21 08:07 Carboprost Tromethamine 250 Mcg/1 Ml Inj IM ONCE PRN Uterine Bleeding Ephedrine Sulfate 10 mg 10/10/21 08:07 Ephedrine Sulfate 50 Mg/1 Ml Inj IV Q2M PRN Hypotension Fentanyl 100 mcg 10/10/21 08:07 10/10/21 09:40 Fentanyl 100 Mcg/2 Ml Inj IV 100 mcg Q2H PRN Administration Pain,Severe (7-10) LABOR PAIN Ferrous Sulfate 325 mg 10/12/21 22:00 10/13/21 00:59 Ferrous Sulfate 325 Mg Tab PO 325 mg BID HERBERT Administration Hydromorphone HCl 2 mg 10/10/21 14:00 Hydromorphone 2 Mg Tab PO Q4H PRN Pain, Moderate (4-6) Hydromorphone HCl 4 mg 10/10/21 14:00 Hydromorphone 2 Mg Tab PO Q4H PRN Pain , Severe (7-10) Oxytocin/Sodium Chloride 30 units in 500 mls @ 40 mls/hr 10/10/21 09:00 Pitocin/Ns 30 Unit/500ml IV [facility] Protocol Oxytocin/Sodium Chloride 30 units in 500 mls @ 0 mls/hr 10/10/21 11:00 Pitocin/Ns 30 Unit/500ml IV [facility]IT[facility] Protocol As Directed Oxytocin/Sodium Chloride 30 units in 500 mls @ 40 mls/hr 10/10/21 12:00 Pitocin/Ns 30 Unit/500ml IV [facility]IT[facility] Protocol Lactated Ringer's 1,000 mls @ 125 mls/hr 10/10/21 22:30 10/10/21 22:53 Lactated Ringers IV 125 mls/hr DIRECT HERBERT Administration Ibuprofen 600 mg 10/10/21 12:00 Ibuprofen 600 Mg Tab PO Q6H PRN Pain, Mild (1-3) Ibuprofen 800 mg 10/10/21 12:00 10/12/21 17:31 Ibuprofen 800 Mg Tab PO 800 mg Q6H PRN Administration Pain, Moderate (4-6) Magnesium Hydroxide 30 ml 10/10/21 22:00 Magnesium Hydroxide (Mom) Oral Liqd Udc PO QHS PRN Constip Unrelieved By Senhollis Methylergonovine Maleate 0.2 mg 10/10/21 08:07 Methylergonovine Maleate 0.2 Mg/Ml Vial IM ONCE PRN Uterine Bleeding Morphine Sulfate 4 mg 10/10/21 12:00 10/10/21 22:53 Morphine 4 Mg/1 Ml Inj IV 4 mg Q4H PRN Administration Pain , Severe (7-10) Multi-Ingredient Ointment 1 applic 10/10/21 12:00 Lanolin/Zinc/Dimethicone (Lansinoh) 7 Gm TP PRN PRN dryness/cracking Multivitamins/Iron/Calcium 1 each 10/11/21 10:00 10/12/21 10:16 [id number] Fumarate-Folic Acid Vit Tab PO 1 each QDAY HERBERT Administration Naloxone HCl 0.1 mg 10/10/21 11:11 Naloxone 0.4 Mg/1 Ml Inj IV Q2MIN PRN Res Rate </= 8 or 02 SAT < 92% Ondansetron HCl 4 mg 10/10/21 12:00 Ondansetron 4 Mg/2 Ml Inj IV Q8H PRN Nausea And Vomiting Promethazine HCl 25 mg 10/10/21 12:00 Promethazine 25 Mg Rect Supp WI Q6H PRN N/V IF NPO AND NO IV ACCESS Senna 17.2 mg 10/10/21 22:00 Sennosides 8.6 Mg Tab PO QHS PRN Constipation Simethicone 80 mg 10/10/21 12:00 Simethicone 80 Mg Chew Tab PO Q6H PRN Gas pain Sodium Chloride 10 ml 10/10/21 12:00 Sodium Chloride 0.9% 10 Ml Flush Syringe IV 10/22/21 11:59 PRN NR Terbutaline Sulfate 0.25 mg 10/10/21 08:07 Terbutaline 1 Mg/1 Ml Inj SUB-Q ONCE PRN Hyperstimulation/Hypertonicity Witch Milli/Glycerin 1 each 10/10/21 12:00 Witch Milli/ Glycerin Pad TP PRN PRN Hemorrhoids/cleansing/soothing
--- NOTE | 2021-10-13 08:36 | Discharge Summary ---
Providers - Providers Date of Admission: 10/10/21 08:07 Date of discharge: 10/13/21 Attending physician: PRANAY BLANCO MD Primary care physician: PRANAY BLANCO MD Hospitalization Reason for admission: IUP at term (breech in labor and PROM) Delivery: Other procedures: none complications: other (endomyometritis) Discharge diagnosis: IUP at term delivered (breech and endomyometritis), other (Bicornuate uterus) [place] baby: female Hospital course: Term with PROM and breech in labor. Pt had primary low transverse section and bicornuate uterus diagnosed intraop. Pt speaks mostly tamazight and states that she was already aware when I spoke with her after the surgery. Pt will have work up to evaluate renal system as an outpatient in her clinic by her other provider. course with endomyometritis that resolving with oral augmentin. Pt afebrile Condition at discharge: Good Disposition: 01 HOME / SELF CARE / HOMELESS Plan - Discharge Medications Prescriptions: Amoxicillin/K Clav Tab [Augmentin 875 mg] 1 tab PO Q12HR 5 Days #10 tab HYDROmorphone [Dilaudid] 2 mg PO Q4HR PRN 21 Days #30 tablet PRN Reason: Pain , Severe (7-10) Ibuprofen [Motrin] 800 mg PO Q8HR PRN 21 Days #40 tablet PRN Reason: Pain, Moderate (4-6) - Provider Discharge Summary Additional instructions: [] Smoking cessation referral if applicable(refer to patient education folder for contact #) [] Refer to [facility]'s [facility] Booklet Call your doctor immediately for: * Fever > 100.5 * Heavy vaginal bleeding ( >1 pad per hour) * Severe persistent headache * Shortness of breath * Reddened, hot, painful area to leg or breast * Drainage or odor from incision. * Keep incision clean and dry at all times and follow doctor's instructions regarding bathing/showering - Follow up plan Follow up: PRANAY BLANCO MD [Primary Care Provider] - 7 Days Forms: [facility] Discharge Summary
[2021-10-13 08:38] LABS: Hematocrit 28.9 % (30.3-42.9); Hemoglobin 9.9 gm/dl (10.1-14.3); Mean Corpuscular HGB Conc 34 % (30-34); Mean Corpuscular Volume 76 fl (79-97); Platelet Count 244 K/mm3 (140-440); Red Blood Count 3.79 M/mm3 (3.65-5.03); Red Cell Distribution Width 18.8 % (13.2-15.2)
[2021-10-13 09:42] LABS: Anisocytosis 1+; Basophils % (Manual) 0 % (0.0-1.8); Platelet Estimate Consistent w Auto; Total Cells Counted 100
[2021-10-13 09:43] LABS: Toxic Granulation 1+; Toxic Vacuolation Few
[2021-10-13] MEDS: PRENATAL VIT27-FE FUMARATE-FOLIC ACID VIT TAB PO SCH (09:54)
[2021-10-13 13:28] VITALS: BP 106/62
== END 2021-10-13 13:23 | disposition home or self-care (01) | DRG 787 ==
LOC: TRG 06:57 → APU 06:58 → LD 07:51 → TRG 08:52 → APU 11:23 → OB 14:41
PROVIDERS: ADMIT Obstetrics & Gynecology Gynecology; ATTEND Obstetrics & Gynecology Gynecology
PROC: 10D00Z1 Extraction of Products of Conception, Low, Open Approach (ICD-10-PCS; principal; 2021-10-10)
PROC: 3E0T3BZ Introduction of Anesthetic Agent into Peripheral Nerves and Plexi, Percutaneous Approach (ICD-10-PCS; 2021-10-10)
PROC: 3E0234Z Introduction of Serum, Toxoid and Vaccine into Muscle, Percutaneous Approach (ICD-10-PCS; 2021-10-11)
DX: O32.1XX0 Maternal care for breech presentation, not applicable or unspecified (principal); O86.12 Endometritis following delivery; Z20.822 Contact with and (suspected) exposure to COVID-19; O42.02 Full-term premature rupture of membranes, onset of labor within 24 hours of rupture; Z3A.38 38 weeks gestation of pregnancy; Z37.0 Single live birth; Z23 Encounter for immunization; O34.03 Maternal care for unspecified congenital malformation of uterus, third trimester; Q51.3 Bicornate uterus; O90.81 Anemia of the puerperium; Z88.8 Allergy status to other drugs, medicaments and biological substances
CPT/HCPCS: 36415; 76816; 85007; 85025; 85027; 86850; 86900; 86901; 88307; 90707; G0378; J3490; J7121; J0690; J1100; J1885; J2270; J2405; J2765; J3010; J7120; U0003